=== PATIENT | male | born 1950 | race Caucasian/White ===

== ENCOUNTER → 2016-12-31 | Outpatient (CLI) | payer MEDICARE ==
[2016-12-31 13:14] LABS: Blood Urea Nitrogen 13 mg/dL (9-20); Non-African American GFR(MDRD) >60 (>60 ml/min/1.73 sqM)
--- NOTE | 2016-12-31 14:04 | CT ---
EXAMINATION TYPE: CT soft tissue neck w con DATE OF EXAM: 12/31/2016 COMPARISON: NONE HISTORY: Feeling of lump in throat CT DLP: 737 mGycm CONTRAST: CT scan of the neck is performed with IV Contrast, patient injected with 100 mL of Omnipaque 300. Contrast enhanced CT of the neck was performed from the skull base through the lung apices. AIRWAY: The supraglottic, glottic, and subglottic portions of the airway appear patent and free of mass. Noted are multiple calcifications within the bilateral adenoids extending into the tonsillar pi llars likely from previous infection. SALIVARY GLANDS: The submandibular and parotid glands are free of mass or inflammatory process. THYROID GLAND: No nodules or masses seen. LYMPH NODES: No adenopathy seen greater than 1cm. LUNG APICES: Mild upper lobe emphysematous change. OTHER: Vascular structures are patent. No significant degenerative change of the cervical spine. N o abscess seen. IMPRESSION: Multiple bilateral calcifications of the bilateral adenoids extending into the tonsillar pillars. Th e findings may reflect previous infection or chronic inflammation.
== END | disposition home or self-care (01) ==
LOC: RADCTMAIN 12:40
PROVIDERS: ATTEND Otolaryngology
DX: D10.6 Benign neoplasm of nasopharynx (principal); J35.8 Other chronic diseases of tonsils and adenoids
CPT/HCPCS: 82565; 84520; 70491; 36415; Q9967

== ENCOUNTER → 2018-03-12 | Outpatient (CLI) | payer MEDICARE ==
--- NOTE | 2018-03-13 09:16 | MR ---
EXAMINATION TYPE: MR cervical spine wo con DATE OF EXAM: 03/12/2018 12:33 PM COMPARISON: NONE HISTORY: Cervical disc displacement Multiplanar MultiSpin echo imaging of the cervical spine was performed. Comparison: none C2-C3: No evidence for degenerative disc disease. No disc bulge/herniation or protrusion. No Canal stenosis. Foramina are patent bilaterally. C3-C4: Moderate disc desiccation. Circumferential disc bulge greatest posteriorly with effacement of the ventral thecal sac. No evidence for central stenosis or disc herniation. Degenerative change cerv ical apophyseal joints resulting in [id number] bilateral foraminal encroachment. C4-C5: Moderate disc desiccation. Circumferential disc bulge greatest posteriorly with effacement of the ventral thecal sac. No evidence for central stenosis or disc herniation. Degenerative change cerv ical apophyseal joints resulting in [id number] bilateral foraminal encroachment. C5-C6: Moderate to severe disc desiccation. Posterior disc bulge with encapsulating spur effacing the ventral thecal sac and resulting in mild central stenosis. Bilateral foraminal encroachment left greater than right. C6-C7: No evidence for degenerative disc disease. No disc bulge/herniation or protrusion. No Canal stenosis. Foramina are patent bilaterally. C7-T1: No evidence for degenerative disc disease. No disc bulge/herniation or protrusion. No Canal stenosis. Foramina are patent bilaterally. Cervical segments are intact. There is normal alignment. Cervical spinal cord is of normal signal. Craniovertebral junction relationships are within normal limits. Ventral spondylosis noted. IMPRESSION: 1. Degenerative disc disease as discussed. 2. Posterior disc bulging greatest at C5-6 where there is mild central stenosis. 3. Varying degrees of foraminal encroachment. 1.
== END | disposition home or self-care (01) ==
LOC: RADMRIMAIN 11:06
PROVIDERS: ATTEND Internal Medicine
DX: M50.31 Other cervical disc degeneration, high cervical region (principal); M50.222 Other cervical disc displacement at C5-C6 level
CPT/HCPCS: 72141

== ENCOUNTER → 2018-09-09 | Outpatient (CLI) | payer MEDICARE ==
--- NOTE | 2018-09-09 21:34 | MR ---
EXAMINATION TYPE: MR lumbar spine wo con DATE OF EXAM: 09/09/2018 COMPARISON: NONE HISTORY: LBP x 6 yrs per patient. Disc degeneration per order. TECHNIQUE: Multiplanar, multisequence imaging of the lumbar spine is performed without IV contrast. FINDINGS: Sagittal images of the lumbar spine show vertebral body heights and alignment to appear sat isfactory. Multilevel disc desiccation is present. Multilevel disc space narrowing is seen which is m oderate to advanced L3-L4 level and moderate L1-L2 and L4-L5 levels. The conus medullaris is normal i n position and signal ending mid L1 level. 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 The bone marrow signal intensity is overall heterogeneous. Axial images show T12-L1 level to appear within normal limits. Axial images at the L1-L2 levels show [id number] broad disc bulge mildly effaces the anterior t hecal sac on axial Image 25, bilateral neural foramina are patent. Axial images at L2-L3 level are felt within normal limits. Axial images at L3-L4 level some mild broad disc bulge mildly effacing the anterior thecal sac due to left paracentral disc protrusion component axial image 15. Mild facet degenerative changes and ligam entum flavum hypertrophy are present bilaterally. There is mild bilateral anterior inferior neural fo raminal narrowing. Axial images at the L4-L5 levels and mild facet degenerative changes bilaterally. There is mild broad disc bulge with right paracentral disc protrusion mildly facing anterior thecal sac. Bilateral neura l foramina are patent. Axial images at the L5-S1 level shows mild/moderate facet degenerative changes bilaterally. There is central disc protrusion is seen with spinal canal is preserved. There is mild left-sided anterior inf erior neural foraminal narrowing noted. Visualized bladder wall is overall thickened and trabeculated, suspect outlet obstruction related to BPH, correlate clinically. IMPRESSION: Multilevel degenerative changes lumbar spine as detailed above.
== END | disposition home or self-care (01) ==
LOC: RADMRIMAIN 19:57
PROVIDERS: ATTEND Internal Medicine
DX: M47.816 Spondylosis without myelopathy or radiculopathy, lumbar region (principal)
CPT/HCPCS: 72148

== ENCOUNTER → 2019-12-29 | Outpatient (CLI) | payer MEDICARE ==
--- NOTE | 2019-12-29 15:00 | US ---
EXAMINATION TYPE: US carotid duplex BILAT DATE OF EXAM: 12/29/2019 COMPARISON: NONE CLINICAL HISTORY: H53.121 TRANSIENT VISION LOSS. EXAM MEASUREMENTS: RIGHT: Peak Systolic Velocity (PSV) cm/sec ----- Right CCA: 56.7 ----- Right ICA: 375.7 ----- Right ECA: 109.5 ICA/CCA ratio: 6.6 RIGHT: End Diastole cm/sec ----- Right CCA: 14.0 ----- Right ICA: 70.4 ----- Right ECA: 16.3 LEFT: Peak Systolic Velocity (PSV) cm/sec ----- Left CCA: 87.5 ----- Left ICA: 141.5 ----- Left ECA: 101.1 ICA/CCA ratio: 1.6 LEFT: End Diastole cm/sec ----- Left CCA: 30.5 ----- Left ICA: 57.5 ----- Left ECA: 23.6 VERTEBRALS (direction of flow): Right Vertebral: Antegrade Left Vertebral: Antegrade Rhythm: Arrhythmia Elevated velocities right ICA. There is soft plaque with intimal thickening noted throughout right si de. Significant stenosis right side. IMPRESSION: No evidence for hemodynamically significant stenosis. Criteria for Assigning % of Stenosis / Diameter reduction (Estimation based on the indirect measurements of the internal carotid artery velocities (ICA PSV). 1. Normal (no stenosis)=ICA PSV < 125 cm/s: ratio < 2.0: ICA EDV<40 cm/s. 2. Less than 50% stenosis=ICA PSV < 125 cm/s: ratio < 2.0: ICA EDV<40 cm/s. 3. 50 to 69% stenosis=ICA PSV of 125 to 230 cm/s: ration 2.0 ? 4.0: ICA EDV 40-100 cm/s. 4. Greater than 70% stenosis to near occlusion= ICA PSV > 230 cm/s: ratio > 4.0: ICA EDV > 100 cm/s. 5. Near occlusion= ICA PSV velocities may be low or undetectable: variable ratio and ICA EDV. 6. Total occlusion=unable to detect flow.
--- NOTE | 2019-12-29 19:22 | ECHOF ---
Referral Reason:H53.121 Transient visual loss, right eye MEASUREMENTS -------- HEIGHT: 172.7 cm WEIGHT: 94.8 kg BP: 150/80 RVIDd: 3.3 cm (< 3.3) IVSd: 1.2 cm (0.6 - 1.1) LVIDd: 4.6 cm (3.9 - 5.3) LVPWd: 1.1 cm (0.6 - 1.1) IVSs: 1.7 cm LVIDs: 3.0 cm LVPWs: 1.6 cm LA Diam: 3.2 cm (2.7 - 3.8) LAESV Index (A-L): 28.54 ml/m Ao Diam: 3.1 cm (2.0 - 3.7) AV Cusp: 2.1 cm (1.5 - 2.6) MV EXCURSION: 20.174 mm (> 18.000) MV EF SLOPE: 93 mm/s (70 - 150) EPSS: 0.5 cm MV E Yousif: 0.76 m/s MV DecT: 286 ms MV A Yousif: 0.88 m/s MV E/A Ratio: 0.86 FINDINGS -------- Sinus rhythm. This was a technically good study. The left ventricular size is normal. There is borderline concentric left ventricular hypertrophy. Overall left ventricular systolic function is normal with, an EF between 60 - 65 %. The right ventricle is mildly enlarged. Normal LA size by volume 22+/-6 ml/m2. The right atrium is normal in size. Interatrial and interventricular septum intact. The aortic valve is trileaflet and appears structurally normal. The mitral valve is normal. The tricuspid valve appears structurally normal. There is no pulmonic regurgitation present. The aortic root size is normal. IVC Not well visulized. There is no pericardial effusion. CONCLUSIONS -------- 1. The left ventricular size is normal. 2. There is borderline concentric left ventricular hypertrophy. 3. Overall left ventricular systolic function is normal with, an EF between 60 - 65 %. 4. The right ventricle is mildly enlarged. 5. There is no pulmonic regurgitation present. 6. There is no pericardial effusion. MARKETING TRAFFIC COORDINATOR: Padmini Beavers RD
== END | disposition home or self-care (01) ==
LOC: RADUSWWP 14:04
PROVIDERS: ATTEND Internal Medicine
DX: I51.7 Cardiomegaly (principal); H53.121 Transient visual loss, right eye
CPT/HCPCS: 93306; 93880

== ENCOUNTER → 2022-03-11 | Outpatient (CLI) | payer MEDICARE ==
--- NOTE | 2022-03-11 16:59 | CTL ---
EXAMINATION TYPE: CT Low Dose Lung DATE OF EXAM ORDERED: 03/11/2022 HISTORY: Personal tobacco use. Lung cancer screening CT DLP: 115.1 mGycm Automated exposure control for dose reduction was used. SCREENING VISIT: Initial COMPARISON: None TECHNIQUE: Low dose computed tomography scan was performed through the chest at 1 mm thick sections a nd reconstructed images in the coronal plane at [address] DIAGNOSTIC QUALITY: Satisfactory FINDINGS: LUNG NODULES: None. LUNGS: COPD: Severity: Mild Fibrosis: Severity: None Lymph nodes: None Other findings: Some streak opacities in the right mid lung could be some atelectasis. RIGHT PLEURAL SPACE: Effusion: None Calcification: None Thickening: None Pneumothorax: None LEFT PLEURAL SPACE: Effusion: None Calcification: None Thickening: None Pneumothorax: None HEART: Heart Size: Normal Coronary calcification: Mild Pericardial effusion: None OTHER FINDINGS: Upper abdomen: Normal Bony thorax: Normal Supraclavicular region: Normal Other: Descending thoracic aorta below the mean pulmonary artery is 3.0 cm. Main pulmonary artery at the bifurcation is 2.1 cm. IMPRESSION: 1. No suspicious change suggestive of primary or metastatic neoplasm. 2. COPD FOLLOW UP CT CHEST RECOMMENDATION: Low-dose CT chest [address] LUNG RAD: Lung-Rad 2 Benign Appearance or Behavior
== END | disposition home or self-care (01) ==
LOC: RADCTMAIN 10:58
PROVIDERS: ATTEND Family Medicine
DX: Z12.2 Encounter for screening for malignant neoplasm of respiratory organs (principal); J44.9 Chronic obstructive pulmonary disease, unspecified; Z87.891 Personal history of nicotine dependence
CPT/HCPCS: 71271